=== PATIENT | female | born 1935 | race Caucasian/White ===

== ENCOUNTER 2020-01-05 14:06 | Inpatient (IN) | payer MEDICARE, OTHER, SELFPAY ==
[2020-01-05] VITALS (9 sets, daily range): BP systolic 109–145; BP diastolic 32–64; PULSE 83–102; RESP 18–20; TEMP 36.1–36.5; O2SAT 91–99; BMI 19.2
--- NOTE | ~2020-01-05 | US_ITS ---
US arterial duplex [facility] 01/05/2020 15:19 Indication: Leg pain with ulcerations Procedure: High-resolution Doppler ultrasound of the lower extremity arteries Comparison: No prior studies for comparison. Findings: The following velocities were obtained in the right lower extremity arteries: Common femoral artery 1 31 cm/s, profunda femoral artery 81 cm/s, superficial femoral arteries 1 68 c m/s, popliteal artery 60 cm/s, posterior tibial artery 25 cm/s, dorsalis pedis arteries 73 cm/s. Velocities in the left lower extremity arteries: Common femoral artery 10 5 cm/s, profunda femoral artery 10 3 cm/s, superficial femoral artery 52 cm/ s, popliteal artery 30 cm/s, posterior tibial artery 31 cm/s, dorsalis pedis artery 43 cm/s. There is biphasic and monophasic waveforms throughout the arterial systems. Impression: 1: No evidence for arterial occlusion. Lower extremity arterial velocities listed above. Reviewed, dictated and finalized at location A. Impression: 1: No evidence for arterial occlusion. Lower extremity arterial velocities list ed above.
--- NOTE | ~2020-01-05 | US_ITS ---
EXAMINATION:US venous doppler LE BI INDICATION:Leg swelling and redness TECHNIQUE: Multiple grayscale, color flow and Doppler images of the right and left lower extremity de ep venous systems were obtained and reviewed. COMPARISON:No prior studies for comparison. FINDINGS: The common femoral, superficial femoral and popliteal veins demonstrate normal respiratory variation, augmentation and compressibility. Color flow is also seen within the posterior tibial, pe roneal, greater saphenous and profunda veins. IMPRESSION: 1: No lower extremity deep venous thrombosis. Reviewed, dictated and finalized at location A.
--- NOTE | 2020-01-05 14:15 | ED.LOWEXIN ---
HPI - Extremity Injury (Lower) General Chief Complaint: Extremity Injury, Lower Stated Complaint: LEG SWOLLEN/REDNESS/REDNESS Time Seen by Provider: 01/05/20 14:15 Source: patient and family Mode of arrival: ambulatory Limitations: no limitations History of Present Illness HPI Narrative: Patient is an 84-year-old female with a history of myocardial infarction, CABG, pacemaker, hypertension and diabetes who presents for evaluation of wounds. Patient reports leaking wounds to the bilateral lower extremities as well as bilateral lower extremity pain. Pain is described as dull, aching in nature. Wounds are weeping a clear fluid, patient denies any purulent drainage. Per family, patient has a longstanding history of picking, often will pick at her face and wounds on her arms and legs. Patient also noted to have wounds to her back that family has been applying triple antibiotic ointment and barrier cream to with some improvement in her symptoms. Patient's daughter states her wounds have never been leaking in the past and was worried for an active infection. Patient is not currently taking any antibiotics for these. 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 Unknown follow-up with dermatology. Related Data Allergies Allergy/AdvReac Type Severity Reaction Status Date / Time ramipril Allergy Unknown Unknown Verified 01/05/20 14:19 valsartan Allergy Unknown Unknown Verified 01/05/20 14:19 Review of Systems Review of Systems: Narrative: CONSTITUTIONAL: Denies fever CARDIOVASCULAR: Denies chest pain RESPIRATORY: Denies cough or dyspnea. GASTROINTESTINAL: Denies abdominal pain SKIN: Reports wounds to face, back, bilateral lower extremities MUSCULOSKELETAL: Denies back pain NEUROLOGIC: Denies headache [facility] Past Medical History Medical History Anxiety Arthritis Chronic UTI GERD (gastroesophageal reflux disease) History of heart attack History of shoulder fracture Hypercholesteremia Hypertension IDDM (insulin dependent diabetes mellitus) Peripheral neuropathy Surgical History Surgical History History of permanent cardiac pacemaker placement Hx of CABG Hx of cardiac cath with 1 stent Family History Family History Father Cerebrovascular accident Mother Family history of kidney disease Social History Social History Smoking status: Never smoker Alcohol intake: never Gender identity (if verbalized by the patient): Female Exam Narrative: Exam Narrative: GENERAL: Awake, alert, conversant HEAD: Normocephalic, atraumatic. EYES: PERRLA and EOMI. ENT: Nares clear, no rhinorrhea or epistaxis. Mucous membranes moist. Scattered lesion surrounding face. NECK: Supple. CHEST: No respiratory distress, breathing even and non labored Thorax: Scattered lesions to back, no vesicles, no bleeding, no abscess, no streaking erythema or tenderness HEART: Regular rate, sinus rhythm ABDOMEN:Non distended, non tender EXTREMITIES: Normal range of motion. No edema. Erythema of the bilateral lower extremities. No calf tenderness bilaterally. Scattered, weeping excoriations bilateral lower extremities without purulent drainage. No streaking erythema. Extremities are warm and well-perfused. DP pulses 2+ bilaterally. SKIN: Warm NEURO:No focal deficits. Alert and oriented x3 Course Vital Signs Vital signs: Vital Signs Temperature 36.3 C L 01/05/20 14:09 Pulse Rate 83 01/05/20 14:09 Respiratory Rate 18 01/05/20 14:09 Blood Pressure 109/32 L 01/05/20 14:09 Pulse Oximetry 98 01/05/20 14:09 Temperature 36.3 C L 01/05/20 14:09 Pulse Rate 99 01/05/20 16:39 Respiratory Rate 20 01/05/20 16:39 Blood Pressure 116/50 L
[2020-01-05 15:38] LABS: Basophils Percent Auto 0.5 % (0.2-1.2); Eosinophils Absolute Auto 0.5 K/mm3 (0-0.3); Eosinophils Percent Auto 6.1 % (0-4.4); Hemoglobin 10.5 g/dL (12.0-15.0); Immature Granulocyte Absolute 0.03 K/mm3 (0.00-0.031); Immature Granulocyte Percent A 0.4 % (0-0.5); Lymphocytes Absolute Auto 1.12 K/mm3 (0.9-3.2); Lymphocytes Percent Auto 14.9 % (18.3-44.2); Mean Corpuscular HGB Conc 32.8 g/dl (32-36); Mean Corpuscular Hemoglobin 30.9 pg (26-34); Mean Corpuscular Volume 94.1 fl (80-100); Mean Platelet Volume 9.1 fl (7.4-10.4); Monocytes Absolute Auto 0.6 K/mm3 (0.1-0.6); Monocytes Percent Auto 7.3 % (2.6-8.5); Neutrophils Absolute Auto 5.3 K/mm3 (1.3-6.7); Neutrophils Percent Auto 70.8 % (45.5-73.1); Platelet Count Result 274 k/mm3 (150-375); Red Cell Distribution Width 13.4 % (11.5-14.5); White Blood Count 7.5 K/mm3 (4.5-10.0)
[2020-01-05 15:50] LABS: Anion Gap 9 mmol/L (8-16); Blood Urea Nitrogen 29 mg/dL (7-17); Calcium 9.4 mg/dL (8.4-10.2); Carbon Dioxide 22 mmol/L (22-30); Chloride 105 mmol/L (98-107); Estimated CRCL calculation 21 ml/min; Estimated Glomerular Filt Rate 33; Glucose 168 mg/dL (65-105); Potassium 5.8 mmol/L (3.4-5.0); Sodium 136 mmol/L (137-145)
[2020-01-05 15:54] LABS: CRP 0.8 mg/dL (<1.0)
[2020-01-05 16:03] LABS: Erythrocyte Sedimentation Rate 32 mm/hr (0-20)
--- NOTE | 2020-01-05 16:14 | ECG_ITS ---
Measurements Intervals [place] Rate: 98 P: -87 CT: 87 QRS: -44 QRSD: 127 T: 88 QT: 346 QTc: 442 Interpretive Statements ECTOPIC ATRIAL RHYTHM LEFT AXIS DEVIATION INTRAVENTRICULAR CONDUCTION DELAY CANNOT RULE OUT SEPTAL INFARCT, AGE INDETERMINATE BORDERLINE ST-T WAVE ABNORMALITY- HIGH LATERAL LEADS ABNORMAL ECG Electronically Signed On 01-06-2020 7:08:07 CDT by Gary Mendoza D.O.
[2020-01-05] MEDS: TETANUS,DIPHTHERIA,AC PERTUSSIS ADULT (0.5 ML) BOOSTRIX IM (16:35)
[2020-01-05] MEDS: DEXTROSE 50% 25 GM/50 ML SYRINGE IV PUSH (17:29)
[2020-01-05] MEDS: CALCIUM GLUCONATE 1,000 MG/10 ML VIAL 2000 MG IV PUSH (17:31)
[2020-01-05] MEDS: INSULIN HUMAN REGULAR (*BKC) 100 UNITS/ML 10 UNITS IV PUSH (17:34)
[2020-01-05 17:52] LABS: Add Urine Microscopic? YES; Appearance Urine Cloudy (Clear); Bacteria Urine 3+ /hpf; Bilirubin Urine Negative (Negative); Blood Urine 3+ (Negative); Color Urine Yellow (Yellow); Glucose Urine UA 1+ mg/dL (Negative); Ketones Urine Trace mg/dL (Negative); Leukocyte Esterase Ur 3+ LEU/UL (Negative); Mucus Urine Rare /lpf; Nitrate Urine Negative (Negative); Protein Urine 1+ mg/dL (Negative); RBC Urine >75 /hpf (0-2); Specific Grav Ur 1.018 (1.001-1.035); Squamous Epithelial Cell Urine Rare /hpf (Few); Urobilinogen Urine Negative mg/dL (<2.0); WBC Urine >75 /hpf
--- NOTE | 2020-01-05 18:20 | ADMGEN ---
This patient, Melissa Roque, was admitted to IMU Room 203-01. Patient/family oriented to hospital policies and general routines including ID bracelet, bed and alarms, visiting hours, pain management, procedures, bathroom and other care routines, personal items, smoking policy, room service/diet, and visiting hours. Valuables list has been completed. Information on how to activate the Rapid Response Team has been discussed. Patient/Family are encouraged to report perceived risks to care and to ask questions if they do not understand what they are told or what they should do.
[2020-01-05 19:57] LABS: Glucose Point of Care 199 (65-105)
[2020-01-05 20:18] LABS: Glucose Point of Care 223 (65-105)
--- NOTE | 2020-01-05 21:01 | PM.IMHP ---
H&P: HPI History of Present Illness Date/Time: 01/05/20 21:01 Chief complaint: Hyperkalema, right lower extremity cellulitis Narrative: Melissa Roque is a 84 year old female Who has a history of vasculitis. The patient was told to follow-up with a forest technology professor but I am not sure that she did. She takes Aleve for her discomfort. I also Petterchak Ultram on her home medication list. She has a history of diabetes as well. The patient tends to pick on the sores on her face and lower extremities. the patient has a weeping sore to her right lower ankle area on the outer portion. Venous Dopplers were performed in the emergency room and Was reported as negative. Also a duplex scan lower extremity was completed and it was read as no evidence for arterial occlusion. Lower extremity arterial velocities listed in the body of the report. The patient was given a tetanus injection in the emergency room. she was given calcium gluconate, D50, and insulin for potassium level of 5.8. Blood sugars were 168, 199 and 223. Creatinine was listed as 1.5. The patient stated that she takes Aleve for her discomfort in her lower extremities. I explained to her that I was only going to give her a 1 time dose of Aleve because of her creatinine. She has red macular rash is around her lower lip. She has a large area to right lower extremity that is red in weeping. She also has a small amount of redness to the left lower extremity but is not weeping. The fluid from the right lower extremity is clear. The family has been applying triple antibiotic ointment and very cream which helped to improve it some. Date of service is 01/05/2020 Review of Systems Review of Systems: All systems reviewed & are unremarkable except as noted in HPI and below Constitutional: Constitutional: Reports as per HPI and Reports no additional constitutional complaints Eyes: Eyes: Reports as per HPI and Reports no additional eye complaints ENT: Reports system reviewed and no additional complaints, except as documented and Reports Normal hearing present Cardiovascular: Cardiovascular: Reports no additional cardiovascular complaints Respiratory: Respiratory: Reports no additional respiratory complaints and Reports no additional respiratory complaints Gastrointestinal: Gastrointestinal: Reports as per HPI and Reports no additional gastrointestinal complaints Musculoskeletal: Musculoskeletal: Reports no additional musculoskeletal complaints Integumentary/Breasts: Skin/Breast: Reports system reviewed and no additional complaints, except as docu and Reports as per HPI Neurologic: Reports system reviewed and no additional complaints, except as documented, Reports as per HPI and Reports Normal hearing present Psychiatric: Psychiatric: Reports no additional psychiatric complaints and Reports as per HPI Endocrine: Endocrine: Reports no additional endocrine complaints Hematologic/Lymphatic: Hematologic/Lymphatic: Reports no additional hematologic/lymphatic complaints Allergic/Immunologic: Allergic/Immunologic: Reports no additional allergic/immunologic complaints [facility] Past Medical History Medical History (Updated 01/05/20 @ 21:20 by Yael Gibson NP) Anxiety Arthritis Atrial fibrillation paroxysmal on anticoagulation. Chronic UTI DM2 (diabetes mellitus, type 2) GERD (gastroesophageal reflux disease) History of heart attack History of shoulder fracture Hypercholesteremia Hypertension IDDM (insulin dependent diabetes mellitus) Peripheral neuropathy Surgical History Surgical History (Updated 01/05/20 @ 21:20 by Yael Gibson NP) History of permanent cardiac pacemaker placement Hx of CABG Four-vessel CABG Hx of cardiac cath with 1 stent Family History Family History (Updated 01/05/20 @ 21:21 by Yael Gibson NP) Father Cerebrovascular accident Mother Family history of kidney disease Son Heart disease Social History Social History (Updated 0
[2020-01-05] MEDS: carvediloL 12.5 MG TABLET PO (21:31)
[2020-01-05] MEDS: GLIMEPIRIDE 2 MG TABLET PO (21:31)
[2020-01-05] MEDS: NAPROXEN SODIUM 220 MG TABLET PO (21:32)
[2020-01-05] MEDS: INSULIN ASPART (*BKC) 100 UNITS/ML SUB-Q (21:33)
[2020-01-05 21:44] LABS: Anion Gap 8 mmol/L (8-16); Blood Urea Nitrogen 26 mg/dL (7-17); Carbon Dioxide 24 mmol/L (22-30); Chloride 104 mmol/L (98-107); Estimated CRCL calculation 20 ml/min; Estimated Glomerular Filt Rate 31; Glucose 242 mg/dL (65-105); Potassium 5.2 mmol/L (3.4-5.0); Sodium 136 mmol/L (137-145)
[2020-01-06] VITALS (14 sets, daily range): BP systolic 110–134; BP diastolic 51–65; PULSE 80–103; RESP 12–181; TEMP 35.8–36.7; O2SAT 93–99
[2020-01-06 05:44] LABS: Basophils Absolute Auto 0.1 K/mm3 (0.0-0.1); Basophils Percent Auto 0.5 % (0.2-1.2); Eosinophils Absolute Auto 0.5 K/mm3 (0-0.3); Eosinophils Percent Auto 4.8 % (0-4.4); Hemoglobin 10.8 g/dL (12.0-15.0); Immature Granulocyte Absolute 0.03 K/mm3 (0.00-0.031); Immature Granulocyte Percent A 0.3 % (0-0.5); Lymphocytes Absolute Auto 1.45 K/mm3 (0.9-3.2); Lymphocytes Percent Auto 13.9 % (18.3-44.2); Mean Corpuscular HGB Conc 32.7 g/dl (32-36); Mean Corpuscular Hemoglobin 30.3 pg (26-34); Mean Corpuscular Volume 92.4 fl (80-100); Mean Platelet Volume 9.3 fl (7.4-10.4); Monocytes Absolute Auto 0.9 K/mm3 (0.1-0.6); Monocytes Percent Auto 8.3 % (2.6-8.5); Neutrophils Absolute Auto 7.5 K/mm3 (1.3-6.7); Neutrophils Percent Auto 72.2 % (45.5-73.1); Platelet Count Result 323 k/mm3 (150-375); Red Blood Count 3.57 M/mm3 (4.2-5.4); Red Cell Distribution Width 13.2 % (11.5-14.5); White Blood Count 10.4 K/mm3 (4.5-10.0)
[2020-01-06] MEDS: SODIUM CHLORIDE 0.9% IV 1,000 ML 100 ML IV CONT ×2 (05:55→18:44)
[2020-01-06 06:02] LABS: CRP 1.1 mg/dL (<1.0); Lactate Dehydrogenase 406 U/L (313-618); Magnesium 1.5 mg/dL (1.6-2.3)
[2020-01-06 08:08] LABS: Glucose Point of Care 86 (65-105)
[2020-01-06 09:07] LABS: Free T4 Free Thyroxine Reflex 1.01 ng/dL (0.78-2.19)
[2020-01-06] MEDS: MAGNESIUM SULF 2 GM/WATER 50ML 2 GM/50 ML BAG IVPB (09:28)
[2020-01-06] MEDS: ATORVASTATIN 10 MG TABLET PO (09:30)
[2020-01-06] MEDS: GLIMEPIRIDE 2 MG TABLET PO (09:30)
[2020-01-06] MEDS: carvediloL 6.25 MG TABLET PO (09:31)
[2020-01-06] MEDS: DIGOXIN TAB 125 MCG TABLET PO (09:31)
[2020-01-06] MEDS: BETAMETHASONE/CLOTRIMAZOLE CR 15 GM TUBE 1 APPLIC TOPICAL (11:54)
[2020-01-06 12:19] LABS: Total Triiodothyronine (T3) 1.13 NG/ML (0.97-1.69)
[2020-01-06 12:47] LABS: Glucose Point of Care 218 (65-105)
[2020-01-06] MEDS: INSULIN ASPART (*BKC) 100 UNITS/ML SUB-Q (12:54)
--- NOTE | 2020-01-06 16:26 | PM.IMPN ---
Progress Note: A&P Assessment and Plan (1) Cellulitis: Qualifiers: Laterality: right Site of cellulitis: extremity Site of cellulitis of extremity: lower extremity Qualified Code(s): L03.115 - Cellulitis of right lower limb Code(s): L03.90 - Cellulitis, unspecified Status: Acute Assessment and Plan: initially felt to be cellulitis of the right foot and leg but I agree with wound care that it is not infected still on antibiotics for UTI and will continue until cultures return. (2) UTI (urinary tract infection): Code(s): N39.0 - Urinary tract infection, site not specified Status: Acute Assessment and Plan: Patient has been placed on Primaxin for the cellulitis. Urine cultures are pending. Blood cultures pending. (3) DM2 (diabetes mellitus, type 2): Code(s): E11.9 - Type 2 diabetes mellitus without complications Status: Chronic Assessment and Plan: Accu-Cheks AC and HS. A1c. 8.0 and oral hypo on hold (4) Atrial fibrillation: Code(s): I48.91 - Unspecified atrial fibrillation Status: Chronic Assessment and Plan: She currently in sinus rhythm. . Patient has paroxysmal atrial fibrillation. She is on Coreg, digoxin, and diltiazem. Please monitor heart rate closely. She is also on Pradaxa. check lanoxin level (5) Hypercholesteremia: Code(s): E78.00 - Pure hypercholesterolemia, unspecified Status: Chronic Assessment and Plan: Continue with Lipitor. (6) Hypertension: Code(s): I10 - Essential (primary) hypertension Status: Chronic Assessment and Plan: She is on Coreg and diltiazem. (7) Acute hyperkalemia: Code(s): E87.5 - Hyperkalemia Status: Acute Assessment and Plan: follow , NSAIDS at home and DM continue rx as necessary (8) Renal failure: Code(s): N19 - Unspecified kidney failure Status: Acute Assessment and Plan: looks to be chronic from previous lab. continue to moniter after rx UTI. if persists or worsens renal US Subjective Date/time seen: 01/06/20 16:26 Interval history: Date of visit 01/05. 84-year-old hypertensive diabetic female admitted with urinary tract infection, possible cellulitis, and hyperkalemia. Has chronic renal insufficiency stage III and paroxysmal atrial fibrillation on anticoagulation. this a.m. she feels fine with no specific complaints. Venous arterial Dopplers negative. Exam Narrative: Exam Narrative: Blood pressure 110/50 pulse is 96 with ectopics saturating 95% on room air afebrile pupils equal reactive to light sclera anicteric mouth normal lungs clear CV appears regular hear no murmurs with ectopics abdomen soft nontender no masses extremities without edema distal pulses 1+ chronic right foot area is somewhat erythematous scaly and slightly macerated with serous drainage she has areas around her mouth, on her back and some on her legs which looked to be self-inflicted excoriations from her chronic itching neuro alert pleasant cooperative no focal deficits Objective Data Vital Signs Vital Signs: Vital Signs - 24 hr 01/05/20 16:39 01/05/20 17:11 01/05/20 18:02 Temperature Pulse Rate 99 98 97 Respiratory Rate 20 20 20 Blood Pressure 116/50 L 121/55 L 127/64 Pulse Oximetry 99 98 98 01/05/20 18:38 01/05/20 20:00 01/05/20 22:00 Temperature 36.1 C L 36.4 C Pulse Rate 98 99 100 Respiratory Rate 18 18 Blood Pressure 145/56 H 144/58 H Pulse Oximetry 91 93 01/05/20 23:18 01/06/20 00:00 01/06/20 01:56 Temperature 36.5 C Pulse Rate 102 H 103 H 101 H Respiratory Rate 18 Blood Pressure 119/50 L Pulse Oximetry 96 01/06/20 03:42 01/06/20 04:00 01/06/20 06:00 Temperature 36.6 C Pulse Rate 101 H 101 H 101 H Respiratory Rate 20 Blood Pressure 123/52 L Pulse Oximetry 99 01/06/20 06:54 01/06/20 08:00 01/06/20 09:31 Temperature 36.5 C Pulse Rate 102
[2020-01-06 17:13] LABS: Glucose Point of Care 200 (65-105)
[2020-01-06 20:42] LABS: Glucose Point of Care 257 (65-105)
[2020-01-06] MEDS: carvediloL 12.5 MG TABLET PO (20:42)
[2020-01-07] VITALS (7 sets, daily range): BP systolic 107–131; BP diastolic 44–64; PULSE 80–99; RESP 18–20; TEMP 36.2–36.5; O2SAT 92–97
[2020-01-07 05:22] LABS: Alanine Aminotransferase 17 U/L (4-35); Albumin Level 3.2 g/dL (3.5-5.1); Alkaline Phosphatase 57 U/L (38-126); Anion Gap 7 mmol/L (8-16); Aspartate Amino Transferase 15 U/L (14-36); Bilirubin,Total 0.4 mg/dL (0.2-1.3); Blood Urea Nitrogen 19 mg/dL (7-17); Calcium 8.3 mg/dL (8.4-10.2); Carbon Dioxide 21 mmol/L (22-30); Chloride 107 mmol/L (98-107); Estimated CRCL calculation 31 ml/min; Estimated Glomerular Filt Rate 53; Glucose 225 mg/dL (65-105); Magnesium 1.8 mg/dL (1.6-2.3); Phosphorus 2.7 mg/dL (2.5-4.5); Sodium 135 mmol/L (137-145)
[2020-01-07 05:43] LABS: Iron 50 ug/dL (37-170)
[2020-01-07 05:46] LABS: Digoxin 0.7 ng/mL (0.8-2.0)
[2020-01-07 05:52] LABS: Percent Iron Saturation 18 % (20-50)
[2020-01-07] MEDS: SODIUM CHLORIDE 0.9% IV 1,000 ML 100 ML IV CONT (06:29)
[2020-01-07] MEDS: BETAMETHASONE/CLOTRIMAZOLE CR 15 GM TUBE 1 APPLIC TOPICAL (08:02)
[2020-01-07] MEDS: carvediloL 6.25 MG TABLET PO (08:16)
[2020-01-07] MEDS: ATORVASTATIN 10 MG TABLET PO (08:16)
[2020-01-07 08:26] LABS: Glucose Point of Care 193 (65-105)
--- NOTE | 2020-01-07 10:04 | PM.IMPN ---
Progress Note: A&P Assessment and Plan (1) Cellulitis: Qualifiers: Laterality: right Site of cellulitis: extremity Site of cellulitis of extremity: lower extremity Qualified Code(s): L03.115 - Cellulitis of right lower limb Code(s): L03.90 - Cellulitis, unspecified Status: Acute Assessment and Plan: Initially felt to be cellulitis of the right foot and leg but I agree with wound care that it is not infected. Wound culture came back growing staph aureus which is most likely from her normal tequila of skin. Again that is not seem to be an infection at this time or open area of drainage. Will continue to monitor wound culture results and consider antibiotic therapy for coverage of both UTI and staph She is still on antibiotics for her urinary tract infection which grew E coli and we are waiting for sensitivities. Continue monitoring leg for any changes or signs of infection. Monitor wound culture and blood culture. (2) UTI (urinary tract infection): Code(s): N39.0 - Urinary tract infection, site not specified Status: Acute Assessment and Plan: Patient came in with generalized weakness and fatigue. Found have urinary tract infection on urinalysis. Urine culture results are growing E coli in sensitivities are still pending. Continue antibiotics for E coli and consider discharge tomorrow based on how she is feeling and what antibiotic she can be discharged on. Continue monitoring patient's symptoms, urine culture and blood culture results. (3) DM2 (diabetes mellitus, type 2): Code(s): E11.9 - Type 2 diabetes mellitus without complications Status: Chronic Assessment and Plan: A1c. 8.0. Serum glucose this morning was 225 which is elevated. Continue to hold her oral metformin and glimepiride at this time to prevent hypotension. Continue checking glucose ACHS, hypoglycemic protocol in place. Make adjustments if necessary. (4) Atrial fibrillation: Code(s): I48.91 - Unspecified atrial fibrillation Status: Chronic Assessment and Plan: She currently in sinus rhythm. Patient has paroxysmal atrial fibrillation. She does appear to be slightly tachycardic but is again in normal sinus rhythm. She has just received her medications recently Will continue monitoring her heart rate. Continue her Coreg, digoxin, and diltiazem. Continue on Pradaxa. digoxin level is slightly low at 0.7. Continue monitoring patient's heart rate. (5) Hypercholesteremia: Code(s): E78.00 - Pure hypercholesterolemia, unspecified Status: Chronic Assessment and Plan: Continue with Lipitor. (6) Hypertension: Code(s): I10 - Essential (primary) hypertension Status: Chronic Assessment and Plan: Blood pressure has been stable since arrival. Continue home medications. She is on Coreg and diltiazem. (7) Acute hyperkalemia: Code(s): E87.5 - Hyperkalemia Status: Acute Assessment and Plan: Potassium was 5.0 today which is within normal range. Will continue with light IV fluid hydration Will tell to discontinue NSAIDS at home and DM continue rx as necessary continue monitoring potassium level daily. (8) Renal failure: Code(s): N19 - Unspecified kidney failure Status: Acute Assessment and Plan: looks to be chronic from previous lab. continue to moniter after rx UTI. if persists or worsens renal US Time Spent With Patient Time with patient: 25 - 35 minutes Subjective Da
[2020-01-07 12:48] LABS: Glucose Point of Care 278 (65-105)
[2020-01-07] MEDS: INSULIN ASPART (*BKC) 100 UNITS/ML SUB-Q ×2 (12:52→17:20)
[2020-01-07 17:09] LABS: Glucose Point of Care 283 (65-105)
[2020-01-07 20:15] LABS: Glucose Point of Care 257 (65-105)
[2020-01-07] MEDS: carvediloL 12.5 MG TABLET PO (21:29)
[2020-01-08] VITALS: PULSE 84
[2020-01-08] MEDS: SODIUM CHLORIDE 0.9% IV 1,000 ML 50 ML IV CONT (00:49)
[2020-01-08 04:56] VITALS: BP 130/63; PULSE 94; RESP 20; TEMP 36.4; O2SAT 97
[2020-01-08 05:04] LABS: Hematocrit 31.9 % (37.0-47.0); Hemoglobin 10.5 g/dL (12.0-15.0); Mean Corpuscular HGB Conc 32.9 g/dl (32-36); Mean Corpuscular Hemoglobin 30.3 pg (26-34); Mean Corpuscular Volume 92.2 fl (80-100); Mean Platelet Volume 8.9 fl (7.4-10.4); Platelet Count Result 266 k/mm3 (150-375); Red Blood Count 3.46 M/mm3 (4.2-5.4); Red Cell Distribution Width 13.6 % (11.5-14.5); White Blood Count 7.5 K/mm3 (4.5-10.0)
[2020-01-08 05:28] LABS: Anion Gap 4 mmol/L (8-16); Blood Urea Nitrogen 16 mg/dL (7-17); Calcium 8.5 mg/dL (8.4-10.2); Carbon Dioxide 23 mmol/L (22-30); Chloride 108 mmol/L (98-107); Estimated CRCL calculation 32 ml/min; Estimated Glomerular Filt Rate 53; Glucose 187 mg/dL (65-105); Magnesium 1.8 mg/dL (1.6-2.3); Potassium 4.9 mmol/L (3.4-5.0); Sodium 135 mmol/L (137-145)
[2020-01-08 08:00] VITALS: BP 91/72; PULSE 99; RESP 16; TEMP 35.9; O2SAT 94
[2020-01-08 08:43] LABS: Glucose Point of Care 159 (65-105)
[2020-01-08 08:51] VITALS: PULSE 96
[2020-01-08] MEDS: DIGOXIN TAB 125 MCG TABLET PO (08:51)
[2020-01-08] MEDS: ATORVASTATIN 10 MG TABLET PO (08:51)
[2020-01-08] MEDS: BETAMETHASONE/CLOTRIMAZOLE CR 15 GM TUBE 1 APPLIC TOPICAL (08:52)
[2020-01-08 08:54] VITALS: PULSE 96
[2020-01-08] MEDS: carvediloL 6.25 MG TABLET PO (08:54)
[2020-01-08 08:57] VITALS: BP 119/62
--- NOTE | 2020-01-08 10:23 | PM.DS ---
DS: Admitting Diagnosis Admitting Diagnosis Admitting Diagnosis: Hyperkalema, right lower extremity cellulitis DS: Discharge Diagnosis Discharge Diagnosis (1) UTI (urinary tract infection): Code(s): N39.0 - Urinary tract infection, site not specified Status: Acute Assessment and Plan: Patient came in with generalized weakness and fatigue. Found have urinary tract infection on urinalysis. Urine culture results are growing E coli and it is pansensitive. Will discharge the patient on oral cefdinir for another few days as well as florastor probiotic. Patient family understand agree with the plan of discharge at this time and will have her follow with primary care provider in 1 week. Blood cultures are negative at this point. (2) DM2 (diabetes mellitus, type 2): Code(s): E11.9 - Type 2 diabetes mellitus without complications Status: Chronic Assessment and Plan: A1c. 8.0. Serum glucose this morning was 187 which is elevated. Continue oral metformin and glimepiride at home. Continue checking glucose and hypoglycemia warnings. (3) Atrial fibrillation: Code(s): I48.91 - Unspecified atrial fibrillation Status: Chronic Assessment and Plan: She currently in sinus rhythm. Patient has hx paroxysmal atrial fibrillation. She has just received her medications recently Will continue monitoring her heart rate. Continue her Coreg, digoxin, and diltiazem. Continue on Pradaxa. digoxin level is slightly low at 0.7. (4) Hypercholesteremia: Code(s): E78.00 - Pure hypercholesterolemia, unspecified Status: Chronic Assessment and Plan: Continue with Lipitor. (5) Hypertension: Code(s): I10 - Essential (primary) hypertension Status: Chronic Assessment and Plan: Blood pressure has been stable since arrival. Continue home medications. She is on Coreg and diltiazem. (6) Acute hyperkalemia: Code(s): E87.5 - Hyperkalemia Status: Acute Assessment and Plan: Potassium was 4.9 today which is within normal range. Will tell to discontinue NSAIDS at home Will recheck BMP in 1 week. (7) Renal failure: Code(s): N19 - Unspecified kidney failure Status: Acute Assessment and Plan: looks to be chronic from previous lab. continue to moniter after rx UTI. if persists or worsens renal US (8) Venous stasis: Code(s): I87.8 - Other specified disorders of veins Status: Acute Assessment and Plan: Initially felt to be cellulitis of the right foot and leg but I agree with wound care that it is not infected. Wound culture came back growing staph aureus which is most likely from her normal tequila of skin. Again that is not seem to be an infection at this time or open area of drainage. Wound culture is growing Staph but this is most likely her normal skin tequila and does not appear that she has an acute infection. Will continue with topical Lotrisone cream, ABD pads and gauze wrap daily and have her follow-up with her primary care provider. Family understands and agrees with the plan all questions answered DS: Summary Hospital Course Reason for hospitalization: Patient is an 84-year-old woman with a history vasculitis, paroxysmal atrial fibrillation, diabetes, who presented to the emergency department with increased weakness over the last few days. Patient lives at home alone with her disabled daughter. Initial labs showed temperature of 97.3?, blood pressure 109/32, her heart
--- NOTE | 2020-01-16 14:52 | PC.NURSE ---
Blood cx are negative.
== END 2020-01-08 13:20 | disposition home health service (06) | DRG 690 ==
LOC: ANHED 17:01 → ANHIMU 17:20
PROVIDERS: Nurse Practitioner; Admitting Provider Internal Medicine; Emergency Provider Emergency Medicine; PCP Internal Medicine Gastroenterology; Visit Provider Physician Assistant
DX: N39.0 Urinary tract infection, site not specified (principal); B96.20 Unspecified Escherichia coli [E. coli] as the cause of diseases classified elsewhere; E11.42 Type 2 diabetes mellitus with diabetic polyneuropathy; E11.22 Type 2 diabetes mellitus with diabetic chronic kidney disease; I87.8 Other specified disorders of veins; I12.9 Hypertensive chronic kidney disease with stage 1 through stage 4 chronic kidney disease, or unspecified chronic kidney disease; N18.3 Chronic kidney disease, stage 3 (moderate); I48.0 Paroxysmal atrial fibrillation; E78.00 Pure hypercholesterolemia, unspecified; E87.5 Hyperkalemia; I25.2 Old myocardial infarction; Z79.01 Long term (current) use of anticoagulants; Z79.84 Long term (current) use of oral hypoglycemic drugs; Z95.0 Presence of cardiac pacemaker; Z95.1 Presence of aortocoronary bypass graft; Z95.5 Presence of coronary angioplasty implant and graft
CPT/HCPCS: 36415; 80048; 80053; 80162; 81001; 82728; 83036; 83540; 83550; 83615; 83735; 84100; 84439; 84443; 84480; 85025; 85027; 85652; 86140; 87040; 87070; 87077; 87086; 87088; 87147; 87186; 87205; 90471; 90715; 93005; 93925; 93970; 96361; 96365; 96367; 96375; 97110; 97161; 97165; 97530; 97535; 99285; A9270; G0378; J0610; J0743; J1815; J3370; J3475; J7030

== ENCOUNTER 2020-09-18 16:28 | Inpatient (IN) | payer MEDICARE, OTHER, MEDICAID, SELFPAY ==
--- NOTE | ~2020-09-18 | XR_ITS ---
EXAMINATION: XR chest 2V EXAM DATE: 09/18/2020 17:01 INDICATION: Weakness X 3 days, history of heart attack, hypertension, atrial fibrillation. TECHNIQUE: Frontal and lateral projections of the chest obtained and reviewed. Comparison is made to prior examination from 05/03/2013. FINDINGS: The lungs are hyperinflated which can be seen with chronic obstructive pulmonary disease (a clinical diagnosis of functional impairment), but is not diagnostic of it. There is a dual lead pace maker/AICD seen with leads projecting over the expected locations of the right atrial appendage and r ight ventricle. Sternotomy wires are present without findings to suggest sternal dehiscence. Cardiac valve replacement. The lungs are clear. There are no pleural effusions. The cardiomediastinal silho uette is within normal limits. There is no pneumothorax suspected. The bones are osteopenic. There are bony degenerative changes. IMPRESSION: 1. No acute cardiopulmonary findings. 2. Hyperinflation. Reviewed, dictated and finalized at location A.
--- NOTE | 2020-09-18 16:32 | ECG_ITS ---
Measurements Intervals [place] Rate: 116 P: [place]: 0 QRS: -61 QRSD: 122 T: 120 QT: 331 QTc: 462 Interpretive Statements ATRIAL FLUTTER/TACHYCARDIA WITH RAPID VENTRICULAR REPONSE LEFT AXIS DEVIATION INTRAVENTRICULAR CONDUCTION DELAY CANNOT RULE OUT SEPTAL INFARCT, AGE INDETERMINATE BORDERLINE ST-T WAVE ABNORMALITY- LAT/HIGH LAT LEADS BASELINE ARTIFACT- I, II, III, AVR, AVL, AVF, V2, V4 ABNORMAL ECG Electronically Signed On 09-18-2020 17:39:06 CDT by Gary Mendoza D.O.
[2020-09-18 16:33] VITALS: BP 146/104; PULSE 110; RESP 20; TEMP 36.2; O2SAT 98
[2020-09-18 16:55] LABS: Basophils Percent Auto 0.3 % (0.2-1.2); Eosinophils Percent Auto 0.2 % (0-4.4); Hematocrit 37.2 % (37.0-47.0); Hemoglobin 12.5 g/dL (12.0-15.0); Immature Granulocyte Absolute 0.06 K/mm3 (0.00-0.031); Immature Granulocyte Percent A 0.5 % (0-0.5); Lymphocytes Absolute Auto 0.92 K/mm3 (0.9-3.2); Mean Corpuscular HGB Conc 33.6 g/dl (32-36); Mean Corpuscular Hemoglobin 30.6 pg (26-34); Mean Platelet Volume 8.7 fl (7.4-10.4); Monocytes Absolute Auto 0.4 K/mm3 (0.1-0.6); Monocytes Percent Auto 2.7 % (2.6-8.5); Neutrophils Absolute Auto 11.8 K/mm3 (1.3-6.7); Neutrophils Percent Auto 89.3 % (45.5-73.1); Platelet Count Result 315 k/mm3 (150-375); Red Blood Count 4.09 M/mm3 (4.2-5.4); Red Cell Distribution Width 12.5 % (11.5-14.5); White Blood Count 13.2 K/mm3 (4.5-10.0)
[2020-09-18 17:05] LABS: Alanine Aminotransferase 18 U/L (4-35); Albumin Level 4.5 g/dL (3.5-5.1); Alkaline Phosphatase 75 U/L (38-126); Anion Gap 14 mmol/L (8-16); Aspartate Amino Transferase 23 U/L (14-36); Bilirubin,Total 0.9 mg/dL (0.2-1.3); Blood Urea Nitrogen 19 mg/dL (7-17); Carbon Dioxide 18 mmol/L (22-30); Chloride 102 mmol/L (98-107); Estimated CRCL calculation 30 ml/min; Estimated Glomerular Filt Rate 47; Glucose 304 mg/dL (65-105); Potassium 4.8 mmol/L (3.4-5.0); Sodium 134 mmol/L (137-145)
--- NOTE | 2020-09-18 17:24 | ED.WEAKNESS ---
HPI - Weakness General Chief complaint: Weakness Stated complaint: weakness, n/v Time Seen by Provider: 09/18/20 17:13 History of Present Illness HPI Narrative: 85 yo female w/ h/o htn, DM presents to the ED for weakness. Someone called to check on her and she did not answer the phone. They became worried and called for EMS. The patient says that she is feeling weak, but she has been weak for quite some time and is not feeling significantly different. She does report some nausea yesterday, and she also says that she has had some diarrhea, but cannot provide any details. She usually lives with her daughter, but she is currently in the hospital and she is living alone. Related Data Home Medications Medication Instructions Recorded Confirmed Pradaxa 75 mg PO Q12H 01/05/20 01/05/20 atorvastatin [Lipitor] 10 mg PO DAILY 01/05/20 01/05/20 carvedilol 6.25 mg PO QAM 01/05/20 01/05/20 carvedilol 12.5 mg PO HS 01/05/20 01/05/20 digoxin 125 mcg PO EVERY OTHER DAY 01/05/20 01/05/20 diltiazem HCl 120 mg PO DAILY 01/05/20 01/05/20 glimepiride 2 mg PO Q12H 01/05/20 01/05/20 metformin 500 mg PO Q12H 01/05/20 01/05/20 Allergies Allergy/AdvReac Type Severity Reaction Status Date / Time ramipril Allergy Unknown Unknown Verified 01/05/20 14:19 valsartan Allergy Unknown Unknown Verified 01/05/20 14:19 Review of Systems Review of Systems: All systems reviewed & are unremarkable except as noted in HPI and below Constitutional: Constitutional: Denies fever(s) and Reports weakness Eyes: Eyes: Reports no additional eye complaints ENT: Denies dizziness Cardiovascular: Cardiovascular: Denies chest pain Respiratory: Respiratory: Denies dyspnea Gastrointestinal: Gastrointestinal: Denies abdominal pain, Reports diarrhea, Reports nausea and Denies vomiting Genitourinary: Genitourinary: Denies hematuria, Reports nocturia and Denies dysuria Musculoskeletal: Musculoskeletal: Denies back pain Neurologic: Denies confusion, Denies focal weakness and Reports weakness PMFSH Past Medical History Medical History Anxiety Arthritis Atrial fibrillation paroxysmal on anticoagulation. Chronic UTI DM2 (diabetes mellitus, type 2) GERD (gastroesophageal reflux disease) History of heart attack History of shoulder fracture Hypercholesteremia Hypertension IDDM (insulin dependent diabetes mellitus) Peripheral neuropathy Surgical History Surgical History History of permanent cardiac pacemaker placement Hx of CABG Four-vessel CABG Hx of cardiac cath with 1 stent Family History Family History Father Cerebrovascular accident Mother Family history of kidney disease Son Heart disease Social History Social History Social History: the patient lives with her daughter Loan but her daughter Dina is a durable power litigation attorney associate for healthcare. The patient desires to be a full code. She had 5 children in her 1 and only son of heart disease. The patient stated that she worked many different jobs and is retired. She said she smoked for about a week when she was young but then quit. She has occasionally had a taste of alcohol. But no marijuana or illicit drugs. Smoking status: Never smoker Alcohol intake: former Substance use: never Substance use type: does not use Gender identity (if verbalized by the patient): Female Spiritual care concerns: No Exam Const: General: no acute distress and alert Nutritional Appearance: thin Orientation/consciousness: patient oriented x3 HENMT: Mouth: Yes dry mucous membranes Eyes: Pupils: Equal, round and reactive pupils present Resp: Effort & Inspection: normal respiratory effort Auscultation: clear to auscultation bilaterally Cardio: Rate: tachycardic Rhythm
[2020-09-18] MEDS: SODIUM CHLORIDE 0.9% IV 1,000 ML 999 ML IV CONT (18:31)
[2020-09-18 18:40] LABS: Add Urine Microscopic? YES; Appearance Urine Cloudy (Clear); Bacteria Urine 1+ /hpf; Bilirubin Urine Negative (Negative); Blood Urine 3+ (Negative); Color Urine Yellow (Yellow); Glucose Urine UA 3+ mg/dL (Negative); Ketones Urine 1+ mg/dL (Negative); Leukocyte Esterase Ur 2+ LEU/UL (Negative); Mucus Urine Few /lpf; Nitrate Urine Negative (Negative); Protein Urine 1+ mg/dL (Negative); RBC Urine >75 /hpf (0-2); Urobilinogen Urine Negative mg/dL (<2.0); WBC Urine >75 /hpf
--- NOTE | 2020-09-18 21:48 | PC.NURSE ---
Pt resting on cart with stable vitals and in no obvious distress at this time. Pt noted to have an episode of incontinent urine. Linens changed and pt lilliam area cleansed with new chux placed. Pt now resting on cart with call button and personal items within reach. Pt noted to be pleasantly confused at this time. Advised to press call button for assistance. SBAR faxed.
[2020-09-18 21:50] VITALS: BP 130/59; PULSE 102; RESP 21; TEMP 36.8; O2SAT 97
--- NOTE | 2020-09-18 22:26 | PC.NURSE ---
Report called to Lisa. Biggs to send pt to floor.
[2020-09-18 22:35] VITALS: BP 135/56; PULSE 105; RESP 18; TEMP 36.5; O2SAT 98
[2020-09-18 22:36] VITALS: BP 113/60; PULSE 103; RESP 17; O2SAT 95
[2020-09-18 22:38] VITALS: BP 113/60; PULSE 103; RESP 17; O2SAT 95
--- NOTE | 2020-09-18 22:45 | ADMGEN ---
This patient, Melissa Roque, was admitted to [facility] Surg Room 313-01. Patient/family oriented to hospital policies and general routines including ID bracelet, bed and alarms, visiting hours, pain management, procedures, bathroom and other care routines, personal items, smoking policy, room service/diet, and visiting hours. Information on how to activate the Rapid Response Team has been discussed. Patient/Family are encouraged to report perceived risks to care and to ask questions if they do not understand what they are told or what they should do.
[2020-09-18 22:50] VITALS: BMI 19.1
[2020-09-18] MEDS: LACTATED RINGERS 1,000 ML 75 ML IV CONT (23:21)
[2020-09-19] VITALS (8 sets, daily range): BP systolic 103–126; BP diastolic 56–68; PULSE 100–104; RESP 16–18; TEMP 36.2–37.1; O2SAT 95–98
--- NOTE | 2020-09-19 00:12 | PM.IMHP ---
H&P: HPI History of Present Illness Date/Time: 09/19/20 00:12 Chief Complaint: Generalized weakness Narrative: This is an 85-year-old female with past medical history significant for congestive heart failure type 2 diabetes mellitus atrial fibrillation rate controlled and anticoagulated the patient was brought to the emergency room today after she was feeling too weak to get out of bed. Patient states that she has been feeling progressively weak over the last few days or so. She has had poor appetite some nausea but no vomiting no diarrhea she has had burning and pain with urination, no chills no rigors no fevers no chest pain no palpitation no shortness of breath no PND no orthopnea. Patient was found to have a urinalysis significant for WBCs. Review of Systems Review of Systems: Narrative: Patient was brought to the emergency room after she complained of generalized weakness Constitutional: Constitutional: Denies chills, Reports fatigue, Denies fever(s) and Reports weakness Eyes: Eyes: Denies change in vision ENT: Denies nasal congestion and Denies nasal discharge Cardiovascular: Cardiovascular: Denies chest pain, Denies irregular heart rhythm and Denies dyspnea Respiratory: Respiratory: Denies cough, Denies dyspnea and Denies wheezing Gastrointestinal: Gastrointestinal: Denies abdominal pain and Denies heartburn Genitourinary: Genitourinary: Reports dysuria Musculoskeletal: Musculoskeletal: Reports muscle weakness Integumentary/Breasts: Skin/Breast: Denies rash Neurologic: Denies focal weakness Endocrine: Endocrine: Denies cold intolerance, Denies heat intolerance and Denies palpitations Hematologic/Lymphatic: Hematologic/Lymphatic: Denies no additional hematologic/lymphatic complaints Allergic/Immunologic: Allergic/Immunologic: Denies no additional allergic/immunologic complaints [facility] Past Medical History Medical History Anxiety Arthritis Atrial fibrillation paroxysmal on anticoagulation. Chronic UTI DM2 (diabetes mellitus, type 2) GERD (gastroesophageal reflux disease) History of heart attack History of shoulder fracture Hypercholesteremia Hypertension IDDM (insulin dependent diabetes mellitus) Peripheral neuropathy Surgical History Surgical History History of permanent cardiac pacemaker placement Hx of CABG Four-vessel CABG Hx of cardiac cath with 1 stent Family History Family History Father Cerebrovascular accident Mother Family history of kidney disease Son Heart disease Social History Social History Social History: the patient lives with her daughter Loan but her daughter Dina is a durable power family law attorney for healthcare. The patient desires to be a full code. She had 5 children in her 1 and only son of heart disease. The patient stated that she worked many different jobs and is retired. She said she smoked for about a week when she was young but then quit. She has occasionally had a taste of alcohol. But no marijuana or illicit drugs. Smoking status: Never smoker Second hand tobacco smoke exposure: No Alcohol intake: former Substance use: former Substance use type: does not use Gender identity (if verbalized by the patient): Female Sexual Orientation (if Verbalized by the Patient): Straight or Heterosexual Spiritual care concerns: No Meds Home Medications and Allergies Home Medications Medication Instructions Recorded Confirmed Type Pradaxa 75 mg PO Q12H 01/05/20 01/05/20 History atorvastatin [Lipitor] 10 mg PO DAILY 01/05/20 01/05/20 History carvedilol 6.25 mg PO QAM 01/05/20 01/05/20 History carvedilol 12.5 mg PO HS 01/05/20 01/05/20 History digoxin 125 mcg PO EVERY OTHER DAY 01/05/20 01/05/20 History diltiazem HCl 120 mg
[2020-09-19 08:25] LABS: Hematocrit 33.1 % (37.0-47.0); Hemoglobin 11.3 g/dL (12.0-15.0); Mean Corpuscular HGB Conc 34.1 g/dl (32-36); Mean Corpuscular Hemoglobin 30.7 pg (26-34); Mean Corpuscular Volume 89.9 fl (80-100); Mean Platelet Volume 8.6 fl (7.4-10.4); Platelet Count Result 269 k/mm3 (150-375); Red Blood Count 3.68 M/mm3 (4.2-5.4); Red Cell Distribution Width 12.5 % (11.5-14.5); White Blood Count 10.5 K/mm3 (4.5-10.0)
[2020-09-19 08:33] LABS: Anion Gap 5 mmol/L (8-16); Blood Urea Nitrogen 16 mg/dL (7-17); Calcium 9.3 mg/dL (8.4-10.2); Carbon Dioxide 22 mmol/L (22-30); Chloride 108 mmol/L (98-107); Estimated CRCL calculation 28 ml/min; Estimated Glomerular Filt Rate 53; Glucose 88 mg/dL (65-105); Potassium 3.8 mmol/L (3.4-5.0); Sodium 135 mmol/L (137-145)
[2020-09-19 08:41] LABS: Glucose Point of Care 88 (65-105)
[2020-09-19] MEDS: GLIMEPIRIDE 2 MG TABLET PO ×2 (11:02→18:12)
[2020-09-19] MEDS: DABIGATRAN ETEXILATE 75 MG CAPSULE PO ×2 (11:02→20:35)
[2020-09-19] MEDS: SACCHAROMYCES BOULARDII 250 MG CAPSULE PO ×2 (11:02→18:12)
[2020-09-19] MEDS: carvediloL 6.25 MG TABLET PO ×2 (11:02→20:35)
[2020-09-19] MEDS: ATORVASTATIN 10 MG TABLET PO (11:02)
[2020-09-19 11:59] LABS: Glucose Point of Care 232 (65-105)
[2020-09-19] MEDS: INSULIN ASPART (*BKC) 100 UNITS/ML SUB-Q (12:13)
[2020-09-19] MEDS: LACTATED RINGERS 1,000 ML 75 ML IV CONT (12:24)
--- NOTE | 2020-09-19 14:09 | PM.IMPN ---
Progress Note: A&P Assessment and Plan (1) UTI (urinary tract infection): Code(s): N39.0 - Urinary tract infection, site not specified Status: Acute Assessment and Plan: Urinalysis abnormal. Asymptomatic. Leukocytosis is improving. She is afebrile. Continue IV Rocephin Urine cultures pending. Await results and tailor antibiotics accordingly Analgesics available as needed for pain (2) Dehydration: Code(s): E86.0 - Dehydration Status: Acute Assessment and Plan: She was felt to be dry upon presentation, secondary to poor p.o. intake and acute infection. Supported by mildly elevated serum creatinine which has resolved. Discontinue IV fluids as she has been adequately rehydrated and is tolerating p.o. intake Encourage oral fluid intake Monitor intake and output. Monitor electrolytes (3) Hyperglycemia due to type 2 diabetes mellitus: Code(s): E11.65 - Type 2 diabetes mellitus with hyperglycemia Status: Acute Assessment and Plan: Blood sugars reviewed and are elevated above target. Last A1c was 8.0 approximately a year ago. Accu-Cheks, sliding scale insulin, and hypoglycemic protocol Diabetic diet Oral hypoglycemic agents are on hold Check updated A1c (4) Atrial fibrillation: Code(s): I48.91 - Unspecified atrial fibrillation Status: Chronic Assessment and Plan: Rate has been stable in the 100-105 range. She is asymptomatic. Continue digoxin, carvedilol, and diltiazem Continue Pradaxa Telemetry for rate monitoring Subjective Date/time seen: 09/19/20 14:09 Interval history: Date of service: 09/19/2020 Melissa Roque is an 85-year-old female with history atrial fibrillation on chronic anticoagulation, type 2 diabetes mellitus, hypertension, hyperlipidemia, and CAD who is seen in follow-up for urinary tract infection. She is feeling well today and has no complaints. She is somewhat of a poor historian. She denies any urinary symptoms. She endorses feeling weak. She denies dizziness or lightheadedness. She denies nausea, vomiting, fever, or chills. Her appetite is good. She denies shortness breath, cough, or chest pain. She has no other concerns and is eager to go home. Review of Systems Review of Systems: All systems reviewed & are unremarkable except as noted in HPI and below Exam Narrative: Exam Narrative: Ms. Roque is a thin, frail 85-year-old female who is sitting up in bed eating lunch. She appears comfortable and is in NARD. Neuro: awake, alert and oriented to self and location only, speech clear, no focal neuro deficits noted HEENMT: normocephalic, atraumatic, EOMI, sclerae anicteric, moist oral mucosa, tongue midline, nares patent Neck: supple, no lymphadenopathy Respiratory: clear to auscultation bilaterally, nonlabored breathing Cardio: regular rate, regular rhythm with S1-S2 Abdomen: nondistended, normoactive bowel sounds, soft, nontender to palpation, no rigidity or guarding : No CVA tenderness, wearing depends Extremities: no edema, erythema, cyanosis, clubbing, or tenderness to palpation, DP pulses 2+ bilaterally Skin: Multiple excoriations on arms, shoulders, and neck that appear to be from scratching, no rashes or lesions, warm and dry Psych: Pleasant, appropriate mood and affect, judgment and insight intact Objective Data Vital Signs Vital Signs: Vital Signs - 24 hr 09/18/20 16:33 09/18/20 21:50 09/18/20 22:35 Temperature 97.1 F L 98.2 F 97.7 F Pulse Rate 110 H 102 H 105 H Respiratory Rate 20 21 H 18 Blood Pressure 146/104 H 130/59 L 135/56 L Pulse Oximetry 98 97 98 09/18/20 22:36 09/18/20 22:38 09/19/20 06:00 Temperature 97.7 F Pulse Rate 103 H 103 H 103 H Respiratory Rate 17 17 16 Blood Pressure 113/60 113/60 126/63 Pulse Oximetry 95 95 95 09/19/20 09:20 09/19/20 11:02 Temperature Pulse Rate 103 H Respiratory Rate Blood Pressure Pulse O
[2020-09-19 17:29] LABS: Glucose Point of Care 198 (65-105)
[2020-09-19] MEDS: carvediloL 12.5 MG TABLET PO (20:35)
[2020-09-19 21:40] LABS: Glucose Point of Care 271 (65-105)
[2020-09-20] VITALS (7 sets, daily range): BP systolic 100–124; BP diastolic 52–58; PULSE 99–108; RESP 16–20; TEMP 36.4–36.8; O2SAT 94–99
[2020-09-20 06:50] LABS: Hematocrit 30.7 % (37.0-47.0); Hemoglobin 10.4 g/dL (12.0-15.0); Mean Corpuscular HGB Conc 33.9 g/dl (32-36); Mean Corpuscular Hemoglobin 29.9 pg (26-34); Mean Corpuscular Volume 88.2 fl (80-100); Mean Platelet Volume 8.7 fl (7.4-10.4); Platelet Count Result 259 k/mm3 (150-375); Red Blood Count 3.48 M/mm3 (4.2-5.4); Red Cell Distribution Width 12.3 % (11.5-14.5); White Blood Count 8.4 K/mm3 (4.5-10.0)
[2020-09-20 06:59] LABS: Anion Gap 5 mmol/L (8-16); Blood Urea Nitrogen 16 mg/dL (7-17); Calcium 9.4 mg/dL (8.4-10.2); Carbon Dioxide 23 mmol/L (22-30); Chloride 108 mmol/L (98-107); Estimated CRCL calculation 26 ml/min; Estimated Glomerular Filt Rate 47; Glucose 118 mg/dL (65-105); Potassium 3.9 mmol/L (3.4-5.0); Sodium 136 mmol/L (137-145)
[2020-09-20 07:33] LABS: Hemoglobin A1C 9.2 % (<5.7)
[2020-09-20 07:38] LABS: Glucose Point of Care 122 (65-105)
[2020-09-20] MEDS: ATORVASTATIN 10 MG TABLET PO (11:33)
[2020-09-20] MEDS: DABIGATRAN ETEXILATE 75 MG CAPSULE PO (11:33)
[2020-09-20] MEDS: DIGOXIN TAB 125 MCG TABLET PO (11:33)
[2020-09-20] MEDS: GLIMEPIRIDE 2 MG TABLET PO (11:33)
[2020-09-20] MEDS: SACCHAROMYCES BOULARDII 250 MG CAPSULE PO (11:34)
[2020-09-20 12:21] LABS: Glucose Point of Care 175 (65-105)
--- NOTE | 2020-09-20 13:04 | PM.DS ---
DS: Admitting Diagnosis Admitting Diagnosis Admitting Diagnosis: Urinary tract infection DS: Discharge Diagnosis Discharge Diagnosis (1) UTI (urinary tract infection): Code(s): N39.0 - Urinary tract infection, site not specified Status: Acute Assessment and Plan: Urine culture with growth of >100,000 CFU E coli. She was treated with IV Rocephin. Leukocytosis resolved. She remained afebrile. She will continue with p.o. cefdinir to complete a 7 day course of antibiotic therapy. (2) Dehydration: Code(s): E86.0 - Dehydration Status: Acute Assessment and Plan: She was felt to be dry upon presentation, secondary to poor p.o. intake and acute infection. She was rehydrated with IV fluids. She was tolerating p.o. intake. Discussed importance of maintaining adequate hydration. (3) DM2 (diabetes mellitus, type 2): Code(s): E11.9 - Type 2 diabetes mellitus without complications Status: Chronic Assessment and Plan: A1c is 9.2. Blood sugars reviewed and were initially elevated but did improve. Blood sugars were monitored and covered with sliding scale insulin. Continue home metformin and glimepiride. Encouraged close monitoring of blood sugars at home and close follow-up with PCP for further review. (4) Atrial fibrillation: Code(s): I48.91 - Unspecified atrial fibrillation Status: Chronic Assessment and Plan: Rate remained stable in the 100-105 range. Telemetry reviewed. She was asymptomatic. Continue digoxin, carvedilol, and diltiazem. Continue Pradaxa. DS: Summary Hospital Course Reason for hospitalization: UTI Hospital Course: Date of admission: 09/18/2020 Date of discharge: 09/20/2020 Melissa Roque is an 85-year-old female with history atrial fibrillation on chronic anticoagulation, type 2 diabetes mellitus, hypertension, hyperlipidemia, and CAD to the emergency department on 09/18/2020 after EMS was called to check on her because she would not answer her phone at home. She complained of feeling weak and having nausea. Upon presentation to the emergency department, her BP was elevated, she was mildly tachycardic, with additional vital signs stable, she was afebrile, WBC was 13.2, H&H and platelets within normal limits, sodium 134, potassium 4.8, chloride 102, CO2 18, BUN 19, creatinine 1.1, glucose 304, UA grossly abnormal, and CXR showed no acute cardiopulmonary findings. She was admitted to the hospitalist service for further evaluation and management. Please see above for further details. She was treated with IV antibiotics and overall appears improved. Given her overall improvement, she was determined to no longer require inpatient care and was felt to be stable for discharge. I discussed her care with her daughter via phone and explained to her the need to continue antibiotics. I also discussed with her worrisome signs and symptoms for which to return. She was seen by PT/OT but did not wish to consider home health or SNF. The patient lives with her daughter who cares for her. She was discharged in hemodynamically stable condition on 09/20/2020 with instructions to follow-up with her PCP in 1 week. Status at Discharge Functional status at discharge: uses cane/walker Overall status at discharge: patient is progressing back to baseline Time Spent with Patient Time attestation: Total time spent providing and/or coordinating discharge services: 45 minutes Time spent: Greater than 30 minutes Exam Narrative: Exam Narrative: Ms. Roque is a thin, frail 85-year-old female who is lying supine in bed. She appears comfortable and is in NARD. Neuro: awake, alert and oriented to self and location only, speech clear, no focal neuro deficits noted HEENMT: normocephalic, atraumatic, EOMI, sclerae anicteric, moist oral mucosa, tongue midline, nares patent Neck: supple, no lymphadenopathy Respiratory: clear to auscultation bilaterally, nonlabo
== END 2020-09-20 15:10 | disposition home or self-care (01) | DRG 690 ==
LOC: ANHED 18:55 → ANH3MEDSUR 20:17
PROVIDERS: Physician Assistant; Admitting Provider Internal Medicine; Emergency Provider Emergency Medicine; PCP Internal Medicine Gastroenterology; Visit Provider Internal Medicine
DX: N39.0 Urinary tract infection, site not specified (principal); E86.0 Dehydration; E11.65 Type 2 diabetes mellitus with hyperglycemia; I48.0 Paroxysmal atrial fibrillation; Z79.01 Long term (current) use of anticoagulants; I10 Essential (primary) hypertension; E78.5 Hyperlipidemia, unspecified; I25.10 Atherosclerotic heart disease of native coronary artery without angina pectoris; B96.20 Unspecified Escherichia coli [E. coli] as the cause of diseases classified elsewhere
CPT/HCPCS: 36415; 71046; 80048; 80053; 81001; 82948; 83036; 85025; 85027; 87077; 87086; 87088; 87186; 93005; 96361; 96365; 97161; 97165; 99285; A9270; G0378; J0696; J1815; J7030; J7120

== ENCOUNTER 2022-07-14 23:10 | Inpatient (IN) | payer MEDICARE, OTHER, SELFPAY ==
--- NOTE | ~2022-07-14 | CT_ITS ---
Non-contrast CT scan of the Abdomen and Pelvis Clinical indication: UTI, sepsis Technique: 2.5 mm axial scans were obtained through the abdomen and pelvis without intravenous or or al contrast. Dose reduction technique was used on this scan by utilizing automated exposure control a nd iterative reconstruction technique. The dose-length product (DLP) was 273.32 mGy-cm. Findings: Images through the lung bases reveal bibasilar scarring or atelectasis. Large right lower pole renal stone present measuring 1.2 cm in diameter. No left renal stone. No hydr onephrosis on either side. No ureteral stones identified. The liver, spleen, pancreas, gallbladder, and adrenals appear normal. There is no aortic aneurysm. T here are atherosclerotic calcifications of the aorta. There is no evidence of bowel obstruction. Suspected mild wall thickening extensively involving the l arge bowel, specially descending and sigmoid colon. There is mild infiltration of perirectal fat. No abscess evident. Images through the pelvis were performed. There is no evidence of ascites or lymphadenopathy. Urinary bladder unremarkable. No adnexal mass evident. 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 Impression: Suspected infectious/inflammatory colitis, fairly extensively involving the large bowel, especially d escending and sigmoid colon. No abscess or bowel obstruction. Nonobstructing right nephrolithiasis, as detailed above. 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 Reviewed, dictated and finalized at [facility]. OR SYSTEM OPERATOR Impression: Suspected infectious/inflammatory colitis, fairly extensively involving the lar ge bowel, especially descending and sigmoid colon. No abscess or bowel obstruct ion. Nonobstructing right nephrolithiasis, as detailed above. 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
--- NOTE | ~2022-07-14 | XR_ITS ---
Portable chest x-ray Comparison: 09/18/2020 Clinical History: Weakness Findings: Lungs are clear, without focal consolidation or pleural effusion. Cardiomediastinal silho uette is stable, status post CABG with pacemaker device. Bones and soft tissues are unremarkable. Impression: Clear lungs. Stable post cardiac surgical changes with pacemaker device. Reviewed, dictated and finalized at location . CIAL LAW CLERK Impression: Clear lungs. Stable post cardiac surgical changes with pacemaker device.
[2022-07-14 23:10] VITALS: BP 136/51; PULSE 94; RESP 20; TEMP 36.3; O2SAT 98
--- NOTE | 2022-07-14 23:32 | ED.RECABL ---
HPI - Recheck/Abnormal Lab/Rx General Chief Complaint: Recheck/Abnormal Lab/Rx <Monica Marin PA-C - Last Filed: 07/15/22 12:40> Stated Complaint: ABN LABS, DEHYDRATION <Monica Marin PA-C - Last Filed: 07/15/22 12:40> Time Seen by Provider: 07/14/22 23:21 <Monica Marin PA-C - Last Filed: 07/15/22 12:40> History of Present Illness HPI narrative: 87-year-old female here for evaluation from her [place] [facility] due to an elevation in her creatinine. This lab was obtained due to patient having poor p.o. intake over the past several days and increased lethargy. She has no history of kidney disease reportedly. Patient herself is A&O 2 at baseline. Her only complaint is feeling generally ill. She screams in pain when touched anywhere. Spoke with family members who confirms that she is a DNR but would like to be admitted if indicated. <Monica Marin PA-C - Last Filed: 07/15/22 12:40> Related Data Home Medications: Home Medications Medication Instructions Recorded Confirmed atorvastatin 10 mg tablet (Lipitor) 10 mg PO DAILY 01/05/20 09/19/20 carvedilol 6.25 mg tablet 6.25 mg PO QAM 01/05/20 09/19/20 carvedilol 6.25 mg tablet 12.5 mg PO HS 01/05/20 09/19/20 dabigatran etexilate 75 mg capsule 75 mg PO Q12H 01/05/20 09/19/20 (Pradaxa) digoxin 125 mcg (0.125 mg) tablet 125 mcg PO EVERY OTHER DAY 01/05/20 09/19/20 diltiazem HCl 120 mg 120 mg PO DAILY 01/05/20 09/19/20 capsule,extended release 24 hr glimepiride 2 mg tablet 2 mg PO Q12H 01/05/20 09/19/20 metformin 500 mg tablet 500 mg PO Q12H 01/05/20 09/19/20 acetaminophen 325 mg chewable 650 mg PO Q4-6H PRN Pain (Scale 07/15/22 07/15/22 tablet Score 1-3) apixaban 2.5 mg tablet (Eliquis) 2.5 mg PO BID 07/15/22 07/15/22 ascorbate calcium (vitamin C) 500 500 mg PO BID 07/15/22 07/15/22 mg tablet atorvastatin 10 mg tablet 10 mg PO HS 07/15/22 07/15/22 cyanocobalamin (vitamin B-12) 1,000 mcg PO DAILY 07/15/22 07/15/22 1,000 mcg tablet,extended release (Vitamin B-12 ER) diltiazem HCl 240 mg 240 mg PO DAILY 07/15/22 07/15/22 capsule,extended release 24 hr donepezil 5 mg tablet 5 mg PO HS 07/15/22 07/15/22 escitalopram oxalate 10 mg tablet 10 mg PO DAILY 07/15/22 07/15/22 furosemide 40 mg tablet 40 mg PO DAILY 07/15/22 07/15/22 insulin lispro 100 unit/mL 1 sliding scale dose subcut 07/15/22 07/15/22 subcutaneous pen (Humalog KwikPen USEASDIRECTD (U-100) Insulin) levothyroxine 112 mcg tablet 112 mcg PO DAILY 07/15/22 07/15/22 megestrol 400 mg/10 mL (40 mg/mL) 400 mg PO BID 07/15/22 07/15/22 oral suspension metoprolol tartrate 25 mg tablet 12.5 mg PO BID 07/15/22 07/15/22 mirtazapine 15 mg disintegrating 15 mg PO HS 07/15/22 07/15/22 tablet multivit with minerals-iron 18 1 tablet PO DAILY 07/15/22 07/15/22 mg-folic ac 400 mcg-vit K 25 mcg tablet (Adults Multivitamin) pantoprazole 40 mg tablet,delayed 4 mg PO DAILY 07/15/22 07/15/22 release sitagliptin phosphate 25 mg tablet 25 mg PO DAILY 07/15/22 07/15/22 (Januvia) <Monica Marin PA-C - Last Filed: 07/15/22 12:40> Allergies/Adverse Reactions: Allergies Allergy/AdvReac Type Severity Reaction Status Date / Time ramipril Allergy Unknown Unknown Verified 07/15/22 07:52 valsartan Allergy Unknown Unknown Verified 07/15/22 07:52 <Monica Marin PA-C - Last Filed: 07/15/22 12:40> Review of Systems Review of Systems: ROS unobtainable: Yes unobtainable due to medical condition <Monica Marin PA-C - Last Filed: 07/15/22 12:40> [facility] Past Medical History Medical History: Medical History Anxiety Arthritis Atrial fibrillation paroxysmal on anticoagulation. Chronic UTI DM2 (diabetes mellitus, type 2) GERD (gastroesophageal reflux disease) History of heart attack History of shoulder fracture Hypercholesteremia Hypertension IDDM (insulin dependent d
[2022-07-14] MEDS: LACTATED RINGERS 1,000 ML 999 ML IV CONT (23:41)
[2022-07-14 23:48] LABS: Hematocrit 34.1 % (37.0-47.0); Hemoglobin 10.8 g/dL (12.0-15.0); Mean Corpuscular HGB Conc 31.7 g/dl (32-36); Mean Corpuscular Hemoglobin 28.3 pg (26-34); Mean Corpuscular Volume 89.5 fl (80-100); Mean Platelet Volume 10.4 fl (7.4-10.4); Platelet Count Result 198 k/mm3 (150-375); Red Blood Count 3.81 M/mm3 (4.2-5.4); Red Cell Distribution Width 17.3 % (11.5-14.5); White Blood Count 16.3 K/mm3 (4.5-10.0)
[2022-07-14 23:50] VITALS: BP 115/54; PULSE 98; RESP 22; O2SAT 98
[2022-07-14 23:59] LABS: Alanine Aminotransferase 28 U/L (6-35); Alkaline Phosphatase 119 U/L (38-126); Anion Gap 10 mmol/L (8-16); Aspartate Amino Transferase 37 U/L (14-36); Bilirubin,Total 0.5 mg/dL (0.2-1.3); Blood Urea Nitrogen 107 mg/dL (7-17); Calcium 8.9 mg/dL (8.4-10.2); Carbon Dioxide 21 mmol/L (22-30); Chloride 113 mmol/L (98-107); Estimated Glomerular Filt Rate 14; Glucose 285 mg/dL (65-110); Potassium 4.6 mmol/L (3.4-5.0); Sodium 144 mmol/L (137-145)
[2022-07-15] VITALS (11 sets, daily range): BP systolic 97–141; BP diastolic 40–60; PULSE 84–113; RESP 15–22; TEMP 36.1–36.4; O2SAT 93–99; BMI 18.1
[2022-07-15] LABS: Lactic Acid Reflex 1.6 mmol/L (0.7-2.0)
[2022-07-15] MEDS: MORPHINE SULFATE (*CRX) 4 MG/ML INJ IV PUSH ×2 (00:28→03:28)
[2022-07-15 01:26] LABS: Anisocytosis 2+ (NORMAL); Band Neutrophils Percent 59 % (0-6); Eosinophils Absolute Manual 0.65 K/mm3 (0.02-0.5); Eosinophils Percent Manual 4 % (0-4); Large Platelets Present; Lymphocytes Absolute Manual 0.32 K/mm3 (1.1-4.5); Macrocytosis 1+ (NORMAL); Metamyelocytes Percent 4 %; Microcytosis 2+ (NORMAL); Monocytes Absolute Manual 0.16 K/mm3 (0.1-0.90); Monocytes Percent Manual 1 % (3-9); Neutrophils Percent Manual 30 % (46-73); Ovalocytes 1+ (NORMAL); Platelet Estimate Adequate (Adequate); Poikilocytosis 3+ (NORMAL); Total Cells Counted 100
[2022-07-15 01:27] LABS: Acanthocytes 2+ (NORMAL); Crenated RBC 2+ (NORMAL); Schistocytes 2+ (NORMAL)
[2022-07-15 01:28] LABS: Burr Cells 3+ (NORMAL); Smudge Cells MODERATE
[2022-07-15 01:45] LABS: Appearance Urine Cloudy (Clear); Bacteria Urine 4+ /hpf; Bilirubin Urine Negative (Negative); Blood Urine 3+ (Negative); Color Urine Yellow (Yellow); Glucose Urine UA Trace mg/dL (Negative); Ketones Urine Negative (Negative); Leukocyte Esterase Ur 2+ LEU/UL (Negative); Nitrate Urine Negative (Negative); Non Pathogenic Casts >20; Protein Urine 2+ mg/dL (Negative); RBC Urine 51-100 /hpf (0-2); Specific Grav Ur 1.016 (1.001-1.035); Squamous Epithelial Cell Urine Occasional /hpf (Few); Urobilinogen Urine 0.2 mg/dL (<2.0); WBC Urine 51-100 /hpf
--- NOTE | 2022-07-15 02:23 | PC.NURSE ---
Pt to Ct via stretcher at this time.
[2022-07-15 02:35] LABS: Add Urine Microscopic? YES
[2022-07-15] MEDS: LACTATED RINGERS 1,000 ML 150 ML IV CONT (02:47)
[2022-07-15 03:23] LABS: Lactic Acid Reflex 1.5 mmol/L (0.7-2.0)
--- NOTE | 2022-07-15 04:48 | PM.IMHP ---
H&P: HPI History of Present Illness Date/Time: 07/15/22 04:48 Chief Complaint: Altered mental status Narrative: This is an 87-year-old female custodial resident patient was brought to the emergency room due to concerns after patient has not been herself has been lethargic and with poor per orally intake for the last several days lab work showed a creatinine of 3, a CBC showed a leukocyte count of 16,000, patient is unable to give any history due to altered mental status according to custodial she is alert and oriented x2, past medical history significant for mechanical heart valve on anticoagulation, pacemaker, chronic kidney disease, dementia. A urinalysis showed numerous WBCs present, a CT of abdomen and pelvis is in progress preliminary report shows no acute intra-abdominal process. Patient is been admitted for further evaluation management and treatment. Review of Systems Review of Systems: ROS unobtainable: Yes unobtainable due to mental status (Dementia, lethargy.) Meds Home Medications and Allergies Home Medications Medication Instructions Recorded Confirmed Type acetaminophen 325 mg chewable 650 mg PO Q4-6H PRN Pain (Scale 07/15/22 07/15/22 History tablet Score 1-3) apixaban 2.5 mg tablet (Eliquis) 2.5 mg PO BID 07/15/22 07/15/22 History ascorbate calcium (vitamin C) 500 500 mg PO BID 07/15/22 07/15/22 History mg tablet atorvastatin 10 mg tablet 10 mg PO HS 07/15/22 07/15/22 History cyanocobalamin (vitamin B-12) 1,000 mcg PO DAILY 07/15/22 07/15/22 History 1,000 mcg tablet,extended release (Vitamin B-12 ER) diltiazem HCl 240 mg 240 mg PO DAILY 07/15/22 07/15/22 History capsule,extended release 24 hr donepezil 5 mg tablet 5 mg PO HS 07/15/22 07/15/22 History escitalopram oxalate 10 mg tablet 10 mg PO DAILY 07/15/22 07/15/22 History furosemide 40 mg tablet 40 mg PO DAILY 07/15/22 07/15/22 History insulin lispro 100 unit/mL 1 sliding scale dose subcut 07/15/22 07/15/22 History subcutaneous pen (Humalog KwikPen USEASDIRECTD (U-100) Insulin) levothyroxine 112 mcg tablet 112 mcg PO DAILY 07/15/22 07/15/22 History megestrol 400 mg/10 mL (40 mg/mL) 400 mg PO BID 07/15/22 07/15/22 History oral suspension metoprolol tartrate 25 mg tablet 12.5 mg PO BID 07/15/22 07/15/22 History mirtazapine 15 mg disintegrating 15 mg PO HS 07/15/22 07/15/22 History tablet multivit with minerals-iron 18 1 tablet PO DAILY 07/15/22 07/15/22 History mg-folic ac 400 mcg-vit K 25 mcg tablet (Adults Multivitamin) pantoprazole 40 mg tablet,delayed 4 mg PO DAILY 07/15/22 07/15/22 History release sitagliptin phosphate 25 mg tablet 25 mg PO DAILY 07/15/22 07/15/22 History (Melanie) Allergies Allergy/AdvReac Type Severity Reaction Status Date / Time ramipril Allergy Unknown Verified 07/14/22 23:40 valsartan Allergy Unknown Verified 07/14/22 23:40 Vital Signs Vital Signs - 24 hr 07/14/22 23:10 07/14/22 23:50 07/15/22 01:16 Temperature 97.4 F L Pulse Rate 94 98 96 Respiratory Rate 20 22 H 18 Blood Pressure 136/51 L 115/54 L 101/47 L Pulse Oximetry 98 98 98 Oxygen Delivery Room Air 07/15/22 02:13 07/15/22 03:32 07/15/22 04:29 Temperature Pulse Rate 93 113 H 90 Respiratory Rate 21 H 22 H 16 Blood Pressure 124/53 L 110/60 117/48 L Pulse Oximetry 99 99 94 Oxygen Delivery Exam Narrative: Patient is laying in bed Const: General: no acute distress, well developed, awake, ill appearing acutely, lethargic, uncomfortable and cachectic Nutritional Appearance: average body habitus Orientation/consciousness: patient oriented x3 HENMT: Head: normal to inspection, normocephalic and atraumatic Ears: hearing grossly normal bilaterally Face/Nose/Sinus: normal facial exam Face and sinus: normal facial exam Eyes: General: appearance normal, both eyes and all related structures Pupils: Equal, round and reactive pupils present EOM: EOMs intact bilaterally Neck: Neck: full ROM
--- NOTE | 2022-07-15 04:49 | ADMGEN ---
This patient, Melissa Roque, was admitted to IMU Room 205-01. Patient/family oriented to hospital policies and general routines including ID bracelet, bed and alarms, visiting hours, pain management, procedures, bathroom and other care routines, personal items, smoking policy, room service/diet, and visiting hours. Information on how to activate the Rapid Response Team has been discussed. Patient/Family are encouraged to report perceived risks to care and to ask questions if they do not understand what they are told or what they should do.
[2022-07-15] MEDS: CIPROFLOXACIN 400 MG/D5W 200ML 200 ML 200 MG IVPB (09:20)
[2022-07-15] MEDS: SILVERGEL (ELTA) 45 ML 1 APPLIC TOPICAL (11:08)
--- NOTE | 2022-07-15 11:55 | PCDIET ---
Nutrition note: Screened for MST 2, unsure of weight loss. No weight history in EMR for the past year. Comes from [facility] with dementia. +Pressure injury. Per RN, pt cannot be assessed at this time because of pain. No diet order yet. Will assess for supplements and other needs when appropriate, or by consult. Lynn Scott RD LDN
[2022-07-15 14:36] LABS: Granular Casts Urine Present /lpf; Hyaline Casts Urine Present /lpf
--- NOTE | 2022-07-15 15:05 | PM.DS ---
DS: Admitting Diagnosis Discharge Date 07/15/22 Admitting Diagnosis colitis, uti, sepsis DS: Discharge Diagnosis Discharge Diagnosis (1) Acute UTI: Code(s): N39.0 - Urinary tract infection, site not specified Status: Acute (2) Acute kidney failure: Code(s): N17.9 - Acute kidney failure, unspecified Status: Acute (3) Mechanical heart valve present: Code(s): Z95.2 - Presence of prosthetic heart valve Status: Acute (4) Pacemaker: Code(s): Z95.0 - Presence of cardiac pacemaker Status: Acute (5) Dementia: Code(s): F03.90 - Unspecified dementia, unspecified severity, without behavioral disturbance, psychotic disturbance, mood disturbance, and anxiety Status: Acute (6) T2DM (type 2 diabetes mellitus): Code(s): E11.9 - Type 2 diabetes mellitus without complications Status: Acute DS: Summary Hospital Course Hospital Course: admitted for sepsis, discussion with family - patient/ family would wish for patient to be made comfort measures - hospice initiated Time Spent with Patient Time attestation: Total time spent providing and/or coordinating discharge services: Exam Narrative: Patient is laying in bed Const: General: no acute distress, well developed, awake, ill appearing acutely, lethargic, uncomfortable, average body habitus and cachectic Nutritional Appearance: average body habitus and cachectic Orientation/consciousness: oriented to person, patient oriented x3 and lethargic HENMT: Head: normal to inspection, normocephalic and atraumatic Ears: hearing grossly normal bilaterally Face/Nose/Sinus: normal facial exam Face and sinus: normal facial exam Eyes: General: appearance normal, both eyes and all related structures Pupils: Equal, round and reactive pupils present EOM: EOMs intact bilaterally Neck: Neck: full ROM, no lymphadenopathy and no JVD Thyroid: thyroid normal Lymphatic: no lymphadenopathy noted Resp: Effort & Inspection: normal respiratory effort and able to speak in complete sentences Auscultation: clear to auscultation bilaterally Cardio: Jugular venous distension: no JVD Rate: regular rate Rhythm: regular rhythm Heart sounds: S1 normal heart sound present and S2 normal heart sound present GI: Inspection: normal to inspection : General: Yes deferred Skin: General skin exam: wounds noted Rashes: no rashes Wounds: wounds noted ulceration left great toe malodorous Neuro: General: oriented to person, patient oriented x3, CN's II-XI intact bilaterally and Unable to assess gait Cranial nerves: Yes CN's II-XII intact bilaterally and Yes Equal, round and reactive pupils present Cognition (Neuro): abnormal cognition (Lethargy) Speech: Other speech findings present (Neuro) (Moans and groans) Gait exam (Neuro): Unable to assess gait Motor exam (neuro): Other motor observations present (Bilateral contracture spasticity lower extremities) Extrem: General: normal to inspection, full ROM, no joint enlargement and no pedal edema Other: Generalized muscle atrophy DS: Data Data Completed and Pending Labs on day of discharge: Labs from last 24 hours 07/15/22 07/15/22 07/14/22 02:44 00:48 23:43 WBC RBC Hgb Hct MCV MCH MCHC RDW Plt Count MPV Immature Gran % (Auto) Neut % (Auto) Lymph % (Auto) [place] % (Auto) Eos % (Auto) Baso % (Auto) Lymph # (Auto) [place] # (Auto) Eos # (Auto) Baso # (Auto) Abs Immat Gran (auto) Absolute Neuts (auto) Absolute Nucleated RBC Total Counted Neutrophils % (Manual) Band Neutrophils % Lymphocytes % (Manual) Monocytes % (Manual) Eosinophils % (Manual) Metamyelocytes % Nucleated RBC % Abs Neuts (Manual) Abs Lymphs (Manual) Abs Monocytes (Manual) Absolute Eos (Manual) Smudge Cells Platelet Estimate Large Platelets Poikilocytosis Anisocytosis Microcytosis Mac
== END 2022-07-15 15:07 | disposition hospice, home (50) | DRG 951 ==
LOC: ANHED 07-15 04:03 → ANHIMU 07-15 04:39
PROVIDERS: Physician Assistant; Admitting Provider Internal Medicine; Emergency Provider Emergency Medicine; PCP Family Medicine; Visit Provider Chiropractor
DX: Z51.5 Encounter for palliative care (principal); A41.9 Sepsis, unspecified organism; N39.0 Urinary tract infection, site not specified; N17.9 Acute kidney failure, unspecified; Z66 Do not resuscitate; E11.42 Type 2 diabetes mellitus with diabetic polyneuropathy; E78.00 Pure hypercholesterolemia, unspecified; F03.90 Unspecified dementia, unspecified severity, without behavioral disturbance, psychotic disturbance, mood disturbance, and anxiety; F41.9 Anxiety disorder, unspecified; I48.0 Paroxysmal atrial fibrillation; I25.2 Old myocardial infarction; I10 Essential (primary) hypertension; K21.9 Gastro-esophageal reflux disease without esophagitis; M19.90 Unspecified osteoarthritis, unspecified site; Z95.0 Presence of cardiac pacemaker; Z79.84 Long term (current) use of oral hypoglycemic drugs; Z79.4 Long term (current) use of insulin; Z95.1 Presence of aortocoronary bypass graft; Z95.5 Presence of coronary angioplasty implant and graft; Z95.2 Presence of prosthetic heart valve; Z79.01 Long term (current) use of anticoagulants; Z28.21 Immunization not carried out because of patient refusal
CPT/HCPCS: 36415; 71045; 74176; 80053; 81001; 83605; 85025; 87040; 87077; 87086; 87147; 87181; 87186; 96361; 96365; 96375; 96376; 99285; A9270; J0131; J0696; J0744; J2270; J7120

== ENCOUNTER 2022-07-15 15:08 | HOS | payer OTHER, MEDICARE, SELFPAY ==
--- NOTE | 2022-07-15 16:03 | PM.IMHP ---
H&P: HPI History of Present Illness Date/Time: 07/15/22 16:03 Chief Complaint: uncontrolled pain Narrative: this him for servin and 87-year-old female was admitted from longterm yesterday due to lethargy and decreased oral intake. Admission she was found to have leukocytosis and acute kidney failure with creatinine of 3. She was found to have abnormal urinalysis consistent with UTI. Has a history of for UTIs in the past. She felt improved despite hydration and appropriate IV antibiotics. Because of her discomfort and advanced age multiple comorbidities and severe dementia her family opted for inpatient hospice care to control her symptoms. Review of Systems Review of Systems: ROS unobtainable: Yes unobtainable due to medical condition PMFSH Past Medical History Medical History Anxiety Arthritis Atrial fibrillation paroxysmal on anticoagulation. Chronic UTI DM2 (diabetes mellitus, type 2) GERD (gastroesophageal reflux disease) History of heart attack History of shoulder fracture Hypercholesteremia Hypertension IDDM (insulin dependent diabetes mellitus) Peripheral neuropathy Surgical History Surgical History History of permanent cardiac pacemaker placement Hx of CABG Four-vessel CABG Hx of cardiac cath with 1 stent Family History Family History Father Cerebrovascular accident Mother Family history of kidney disease Son Heart disease Social History Social History (Updated 07/15/22 @ 16:09 by Arnulfo Montalvo MD) Social History: Formerly lived with daughter Loan and daughter Dina is a durable power transactional attorney for healthcare. Code Status: DNR She had 5 children and her only son of heart disease. Retired after working various jobs. Tried cigarettes for one week during young adulthood. Very occasional alcohol use in past. But no marijuana or illicit drugs. Smoking status: Never smoker Second hand tobacco smoke exposure: No Alcohol intake: former Substance use: never Substance use type: does not use Living arrangements: longterm Occupation/Education: retired Gender identity (if verbalized by the patient): Female Sexual Orientation (if Verbalized by the Patient): Straight or Heterosexual Spiritual care concerns: No Meds Home Medications and Allergies Home Medications Medication Instructions Recorded Confirmed Type atorvastatin 10 mg tablet (Lipitor) 10 mg PO DAILY 01/05/20 09/19/20 History carvedilol 6.25 mg tablet 6.25 mg PO QAM 01/05/20 09/19/20 History carvedilol 6.25 mg tablet 12.5 mg PO HS 01/05/20 09/19/20 History dabigatran etexilate 75 mg capsule 75 mg PO Q12H 01/05/20 09/19/20 History (Pradaxa) digoxin 125 mcg (0.125 mg) tablet 125 mcg PO EVERY OTHER DAY 01/05/20 09/19/20 History diltiazem HCl 120 mg 120 mg PO DAILY 01/05/20 09/19/20 History capsule,extended release 24 hr glimepiride 2 mg tablet 2 mg PO Q12H 01/05/20 09/19/20 History metformin 500 mg tablet 500 mg PO Q12H 01/05/20 09/19/20 History Saccharomyces boulardii 250 mg 250 mg PO BID 7 days #14 caps 01/08/20 09/19/20 Rx capsule (Florastor) cefdinir 300 mg capsule 300 mg PO Q12H #8 caps 09/20/20 Rx acetaminophen 325 mg chewable 650 mg PO Q4-6H PRN Pain (Scale 07/15/22 07/15/22 History tablet Score 1-3) apixaban 2.5 mg tablet (Eliquis) 2.5 mg PO BID 07/15/22 07/15/22 History ascorbate calcium (vitamin C) 500 500 mg PO BID 07/15/22 07/15/22 History mg tablet atorvastatin 10 mg tablet 10 mg PO HS 07/15/22 07/15/22 History cyanocobalamin (vitamin B-12) 1,000 mcg PO DAILY 07/15/22 07/15/22 History 1,000 mcg tablet,extended release (Vitamin B-12 ER) diltiazem HCl 240 mg 240 mg PO DAILY 07/15/22 07/15/22 History capsule,extended release 24 hr donepezil 5 mg tablet 5 mg PO HS 07/15/22 07/15/22 History escital
[2022-07-15 18:20] VITALS: BMI 23.1
[2022-07-15 20:21] VITALS: PULSE 113; RESP 30
[2022-07-15] MEDS: HYDROmorphone HCL/PF (*CRX) 50 MG in SODIUM CHLORIDE 0.9% IV 95 ML IV CONT (20:21)
[2022-07-15] MEDS: HYDROmorphone HCL INJ (*CRX) 1 MG/ML SYR 0.5 MG IV PUSH (20:37)
[2022-07-15 22:00] VITALS: BP 153/58; PULSE 112; RESP 10; TEMP 36.2; O2SAT 100; BMI 18.5
--- NOTE | 2022-07-15 22:59 | PC.NURSE ---
This patient, Melissa Roque, was transferred to [room 318 ] on 07/15/22 at 2259. Personal belongings sent with patient. Report given to [ Gaby ENGLE]. Appropriate documentation sent with patient.
--- NOTE | 2022-07-15 23:07 | PC.NURSE ---
monitored charting and medication dispensing done by bozena douglas. i agree with everything. patient transferred to 318 on hospice.
[2022-07-15] MEDS: diazePAM INJ (*CRX) 10 MG/2 ML SYRINGE 5 MG IV PUSH (23:10)
[2022-07-16] MEDS: HYDROmorphone HCL INJ (*CRX) 1 MG/ML SYR 0.5 MG IV PUSH (09:55)
[2022-07-16] MEDS: diazePAM INJ (*CRX) 10 MG/2 ML SYRINGE 5 MG IV PUSH (16:18)
--- NOTE | 2022-07-16 16:52 | PM.IMPN ---
Progress Note: A&P Assessment and Plan (1) Palliative care encounter: Code(s): Z51.5 - Encounter for palliative care Status: Acute Assessment and Plan: Meet inpatient hospice criteria due to requiring continuous IV hydromorphone for control of pain remainder of palliative regimen as ordered (2) Dementia: Code(s): F03.90 - Unspecified dementia, unspecified severity, without behavioral disturbance, psychotic disturbance, mood disturbance, and anxiety Status: Acute (3) Acute UTI: Code(s): N39.0 - Urinary tract infection, site not specified Status: Acute (4) Acute kidney failure: Code(s): N17.9 - Acute kidney failure, unspecified Status: Acute (5) T2DM (type 2 diabetes mellitus): Code(s): E11.9 - Type 2 diabetes mellitus without complications Status: Acute (6) Atrial fibrillation: Code(s): I48.91 - Unspecified atrial fibrillation Status: Chronic Subjective Date/time seen: 07/16/22 16:52 Interval history: Still uncomfortable with any movement of touch. Drip increased this afternoon from 0.25 to 0.5mg/hr and bolus from 0.5 to 1 mg. Review of Systems Review of Systems: ROS unobtainable: Yes unobtainable due to medical condition Exam Narrative: HEENT: Pupils equal round react to light, sclerae nonicteric, pharyngeal gross a painful dry, edentulous NECK: No JVD CHEST: Clear to auscultation. Normal effort. HEART: NL S1/S2, regular, no murmur ABDOMEN: BS Hypoactive, soft, nontender, no mass, no bruits EXTREMITIES: No edema NEUROLOGIC: CN symmetric to inspection. MUSCULOSKELETAL: no gross deformities of visual inspection PSYCH: Alert. seems oriented to person only. Phonates unintelligible sounds. Response to tactile stimuli with moaning and verbal stimuli in a non-directed fashion Objective Data Vital Signs Vital Signs: Vital Signs - 24 hr 07/15/22 20:21 07/15/22 20:00 07/16/22 00:14 Temperature Pulse Rate 113 H Respiratory Rate 30 H Blood Pressure Pulse Oximetry Oxygen Delivery Room Air Room Air 07/15/22 22:00 Temperature 97.2 F L Pulse Rate 112 H Respiratory Rate 10 L Blood Pressure 153/58 H Pulse Oximetry 100 Oxygen Delivery Intake/Output Intake/Output: Intake & Output 07/13/22 07/14/22 07/15/22 07/16/22 23:59 23:59 23:59 23:59 Output Total 300 Balance -300 Meds/Results Medications: Active Medications Generic Name Dose Route Start Last Admin Trade Name Freq PRN Reason Stop Dose Admin Artificial Tears 0 drop 07/15/22 17:21 Artificial Tears Ophth Soln 15 Ml Bottle EACH EYE Q6-8H PRN Dry Eye(s) Bisacodyl 10 mg 07/15/22 17:21 Bisacodyl 10 Mg Suppository RECTAL DAILY PRN Constipation Diazepam 5 mg 07/15/22 17:20 07/16/22 16:18 Diazepam Inj (*Crx) 10 Mg/2 Ml Syringe IV PUSH 5 mg Q4H PRN Administration Restless Glycopyrrolate 0.1 mg 07/15/22 17:20 Glycopyrrolate Inj (*Sp) 0.2 Mg/Ml Vial IV PUSH Q4H PRN Secretions Hydromorphone HCl 1 mg 07/16/22 16:27 Hydromorphone Hcl Inj (*Crx) 1 Mg/Ml Syr IV PUSH Q2H PRN Pain Hydromorphone HCl 50 mg/ 100 mls @ 1 mls/hr 07/15/22 17:20 07/15/22 20:21 Sodium Chloride IV CONT 0.25 mg/hr .Q24H ROBBIN 0.5 mls/hr Administration 0.5 MG/HR Prochlorperazine Edisylate 10 mg 07/15/22 17:21 Prochlorperazine Edisylate 10 Mg/2 Ml Vial IV PUSH Q6H PRN Nausea And Vomiting
[2022-07-16 17:16] VITALS: PULSE 106; RESP 7; TEMP 36.6
[2022-07-16 18:15] VITALS: PULSE 100; RESP 24
[2022-07-16] MEDS: HYDROmorphone HCL/PF (*CRX) 50 MG in SODIUM CHLORIDE 0.9% IV 95 ML IV CONT (18:15)
--- NOTE | 2022-07-16 23:12 | PC.NURSE ---
Gold colored band, removed from patient at the request of Cele Sanchez (patient's POA and daughter), and given to her.
--- NOTE | 2022-07-17 11:46 | P.DN_ITS ---
Discharge Summary Date and Time Date of : 07/16/22 Time of : 22:05 Provider Pronounced By: Amalia Sarkar RN Probable Cause of Probable Cause of : End-stage dementia of undetermined etiology, without behavioral disturbance Summary Hospital Course: Admitted to inpatient hospice service for symptom management. Medications were titrated to comfort. Mrs. Roque peacefully. Additional Data Confirmation of as documented by pronouncing clinician: Pupillary Reflex, Palpable Pulses, Response to Stimuli, Heart Tones and Breath Sounds Name of Provider Notified: Dr. Arnulfo Montalvo Time Provider Notified: 22:19 Provider Requests Autopsy: No Family Requests Autopsy: No Housekeeping/Laundry Supervisor Notified: Yes Date [facility] Notified of : 07/16/22 Time [facility] Notified of : 22:20
== END 2022-07-16 22:00 | disposition expired | DRG 951 ==
LOC: ANHIMU 15:18 → ANH3MEDSUR 23:02
PROVIDERS: Admitting Provider Internal Medicine; PCP Family Medicine; Visit Provider Internal Medicine
DX: Z51.5 Encounter for palliative care (principal); N17.9 Acute kidney failure, unspecified; N39.0 Urinary tract infection, site not specified; F03.90 Unspecified dementia, unspecified severity, without behavioral disturbance, psychotic disturbance, mood disturbance, and anxiety; D72.829 Elevated white blood cell count, unspecified; M19.90 Unspecified osteoarthritis, unspecified site; I48.0 Paroxysmal atrial fibrillation; K21.9 Gastro-esophageal reflux disease without esophagitis; E78.00 Pure hypercholesterolemia, unspecified; I10 Essential (primary) hypertension; E11.42 Type 2 diabetes mellitus with diabetic polyneuropathy; Z66 Do not resuscitate; Z79.01 Long term (current) use of anticoagulants; I25.2 Old myocardial infarction; Z95.1 Presence of aortocoronary bypass graft; Z95.5 Presence of coronary angioplasty implant and graft; Z95.0 Presence of cardiac pacemaker
CPT/HCPCS: A9270; J1170; J3360